=== PATIENT | male | born 1965 | race Caucasian/White ===

== ENCOUNTER 2018-12-19 09:52 | Day surgery (SDC) | payer MEDICAID, SELFPAY ==
[2018-12-15 16:15] VITALS: BMI 21.8
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
[2018-12-19] MEDS: Lactated Ringers 1,000 ML 75 ML IV ×2 (07:00→11:30)
[2018-12-19 10:32] VITALS: BP 127/82; PULSE 94; RESP 18; TEMP 36.9; O2SAT 98; BMI 22.1
--- NOTE | 2018-12-19 10:51 | EKG12_ITS ---
Test Reason : PRE OP Blood Pressure : / mmHG Vent. Rate : 060 BPM Atrial Rate : 060 BPM P-R Int : 160 ms QRS Dur : 092 ms QT Int : 416 ms P-R-T Axes : 062 -30 007 degrees QTc Int : 416 ms Normal sinus rhythm Left axis deviation Abnormal ECG No previous ECGs available Confirmed by JASPAL GORDON, ARTURO ([id number]), field map editor SUNIL PISANO ([id number]) on 12/21/2018 11:28:56 AM Referred By: Ml Dennis Confirmed By:ARTURO SHAY MD
[2018-12-19 11:21] LABS: Hematocrit 45.1 % (40-54); Hemoglobin 14.5 g/dL (13.0-16.5); Mean Corp Hgb Conc 32.2 g/dL (32-36); Mean Corpuscular Hgb 30.8 pg (27.0-32.0); Mean Corpuscular Volume 95.8 fL (80-94); Mean Platelet Vol. 10.5 fl (6.2-12.0); Platelet Count 136 K/mm3 (150-450); RBC Distribution Width CV 13.1 % (11.6-14.6); RBC Distribution Width SD 46.4 fl (35.1-43.9); Red Blood Count 4.71 M/mm3 (4.6-6.2); White Blood Count 4.1 K/mm3 (4.4-11.0)
[2018-12-19 11:27] LABS: Partial Thromboplast Time 30.7 Seconds (24.1-36.2)
[2018-12-19 11:30] LABS: Prothrombin Time (Protime)PT. 13.4 SECONDS (11.7-14.9)
--- NOTE | 2018-12-19 11:30 | HERN_PTH ---
PATIENT: JONO BEGUM LOC: [facility] – [place], [place] U#:[id number] AGE/SX: 53/M ROOM: RE12/19/[address]: Dr. Ml Dennis MD : 1965 BED: DIS: 12/19/2018 SPEC #: [id number] RECD: 12/19/18 13:59 STATUS: ROB JUDSON #: [id number] VIANNEY: 12/19/18 11:[address]: Ml Dennis DEPT: SURGICAL PATHOLOGY RECD BY: Yvonne Mondragon ENTERED: 12/19/18 14:21 SP TYPE: Hernia OTHR DR: No Primary Care Phys Tissues: HERNIA Procedures: Surgery Specimen Level II HEADER OPERATION: Hernia, inguinal with mesh PRE-OP DIAGNOSIS: Right inguinal hernia TISSUE SUBMITTED: Hernia sac MICROSCOPIC DIAGNOSIS Hernia sac: Mesothelial lined fibroadipose and fibroconnective tissue, consistent with hernia sac. SJ:meghna 12/20/18 MICROSCOPIC DESCRIPTION Slides are reviewed. GROSS DESCRIPTION Received in fixative is one container labeled with the patient's name and designated hernia sac. The specimen consists of a piece of yao-pink soft tissue measuring 6 x 2.5 x 0.3 cm. No mass lesion is identified. Strip Feeder sections are submitted in one cassette. / SJ:rg 12/19/18 TC:5 CPT: 28398
[2018-12-19 11:33] LABS: AST(SGOT) 77 U/L (15-37); Alanine Aminotransfer ALT/SGPT 135 U/L (16-61); Albumin, Serum 3.5 g/dL (3.2-5.0); Alkaline Phosphatase 57 U/L (45-117); Bilirubin, Direct 0.17 mg/dL (0.00-0.30); Globulin 3.3 g/dL (2.2-4.2); Protein, Total 6.8 g/dL (6.4-8.2)
[2018-12-19] MEDS: Cefazolin 2 GM in 0.9% Normal Saline 100 ML IV (11:37)
--- NOTE | 2018-12-19 12:35 | OP.PCM_ITS ---
Report of Operation Date of Procedure: 12/19/18 Pre-Operative Diagnosis: right inguinal hernia - direct and indirect Post-Operative Diagnosis: same Surgery/Procedure Performed:: right inguinal hernia repair with mesh Description of Surgical Findings:: large right inguinal hernia sac with incarcerated omentum and large intestine, direct and indirect gritting machine operator: Melody Best Type of Anesthesia:: Local MAC Anesthesiologist: Lobo Leal Specimen's removed: right inguinal hernia sac Estimated Blood Loss (mL): < 5 Fluids Replaced: 1100 ml RL Description of Procedure: After informed consent was obtained, patient was brought to the Operating Room. Appropriate time out protocol was followed. He was then placed in the supine position. The patient was then placed under anesthesia. The lower torso and the right groin area and genitalia were then prepped with a surgical skin preparation and appropriate sterile surgical drapes were placed. The anatomical landmarks were identified and after anesthetizing the skin and subcutaneous tissues with 0.25% Marcaine mixture with lidocaine with epinephrine, a transverse skin incision was made above the level of the internal inguinal ring. The subcutaneous tissues were then sharply dissected down to the external obl ique fascia and any hemorrhage was adequately controlled with electrocoagulation. The external oblique was then divided obliquely along the fibers and a muscle-splitting incision was then made to divide the internal oblique musculature and fascia. The transversalis fascia was then identified and was then incised parallel to the inferior hypogastric vessels. The preperitoneal space was then entered. Blunt dissection was then done to identify out Christian's ligament, the pubic tubercle and a large area surrounding these landmarks for placement of the mesh. The femoral vessels were identified. The peritoneal sac was then from the spermatic cord. It was opened and there was incarcerated omentum and large bowel within it. There is no evidence of any other opening in the peritoneum. The peritoneal opening that was created was then closed using a running 3-0 Vicryl suture. A large right sided Bard mesh was then placed in the preperitoneal space such that it would be overlapping medially beyond the pubic tubercle and overlapping inferior to Christian's ligament. The patient was then placed in the reversed [place] position to ensure that the mesh was laid out properly according to poultry picker's guidelines. The mesh covered the entire wound opening also. The internal oblique fascia was then closed using interrupted 0 prolene suture. One of the sutures was used to lock the mesh into position. Hemostasis was carefully controlled with electrocoagulation. The external oblique fascia was then reapproximated using a running 0 Vicryl suture. This was carefully done to avoid any entrapment of blood vessels/nerves. Sandra's fascia was closed using Vicryl suture in an interrupted simple fashion. The skin incision was closed with 4-0 Monocryl in a running subcuticular fashion. Cavilon and Steri-Strips were used to reinforce the skin closure and appropriate sterile dressing was applied. The patient was brought to the Recovery Room in stable condition. Grafts/Implants Used: Bard 3D Max Mesh [id number], exp 2023-06-13 - Complications none noted - Admit VTE Documentation VTE Present on Admission: Yes VTE Mechan Device Prophylaxis: SCD's
[2018-12-19] MEDS: Bupivacaine 0.25% 30 ML Vial (12:40)
[2018-12-19 12:54] VITALS: BP 102/71; BP 127/82; PULSE 66; RESP 16; TEMP 36.8; O2SAT 94
[2018-12-19 13:00] VITALS: BP 127/82; BP 96/74; PULSE 67; RESP 18; O2SAT 97
[2018-12-19 13:15] VITALS: BP 110/78; BP 127/82; PULSE 58; RESP 18; O2SAT 95
--- NOTE | 2018-12-19 13:18 | DCINST_ITS ---
Discharge Diet: No Restrictions Discharge Activity: Return to Normal Activity Lifting Restrictions: no lifting greater than 50 pounds for one month Call your doctor if your incision/area has: Continuous Slow Oozing, Foul Smelling Discharge Call your doctor if you observe: Fever of 101 or Higher Additional Dressing/Incision Instructions:: Leave dressing in place. May get wet in shower. Do not soak - no tub baths/swimming. Apply ice packs to the area for comfort as tolerated Allergies/Adverse Reactions: Allergies carisoprodol [From Soma] Allergy (Verified 12/15/18 16:15) Anaphylaxis wool Allergy (Verified 12/15/18 16:15) Hives Medications to take at Discharge Gabapentin [Neurontin] 600 mg PO BIDCM 12/15/18 Quetiapine Fumarate [Seroquel] 50 mg PO DAILY 12/15/18 Primary Care Physician: Care Physician,No Primary [Primary Care Provider] - Test Results: Test results from this visit will be discussed in further detail at your follow- up appointment, if applicable. Please Follow Up With: Ml Dennis MD - call When: to be seen in 1-2 weeks, please call for date and time, thank you
[2018-12-19 13:30] VITALS: BP 111/62; BP 127/82; PULSE 56; RESP 18; TEMP 36.6; O2SAT 98
[2018-12-19] MEDS: HYDROcodone Bitartrate/Apap 5/325 Tablet PO (13:55)
[2018-12-19 14:26] VITALS: BP 127/82
== END 2018-12-19 14:30 ==
LOC: SDC 10:00 → AC 10:02
PROVIDERS: Anesthesiology; Referring Provider Surgery; Visit Provider Surgery
PROC: (CPT 49507; principal; 2018-12-19 11:15)
DX: K40.30 Unilateral inguinal hernia, with obstruction, without gangrene, not specified as recurrent (principal); F17.200 Nicotine dependence, unspecified, uncomplicated; B19.20 Unspecified viral hepatitis C without hepatic coma; F43.10 Post-traumatic stress disorder, unspecified; F48.2 Pseudobulbar affect; Z85.9 Personal history of malignant neoplasm, unspecified; Z79.899 Other long term (current) drug therapy
CPT/HCPCS: 49507; 36415; 80076; 85027; 85610; 85730; 88302; 93005; J7050; J7120; C1781